=== PATIENT | female | born 1955 | race Caucasian/White ===

== ENCOUNTER 2020-12-03 16:09 | Outpatient (CLI) | payer OTHER, SELFPAY | END 2020-12-03 16:10 | disposition home or self-care (01) | LOC: ANHCOVIDVC 16:09 | DX: Z23 Encounter for immunization (principal) | CPT/HCPCS: 0001A; 91300 ==

== ENCOUNTER 2020-12-24 16:10 | Outpatient (CLI) | payer OTHER, SELFPAY | END 2020-12-24 16:11 | disposition home or self-care (01) | LOC: ANHCOVIDVC 16:10 | DX: Z23 Encounter for immunization (principal) | CPT/HCPCS: 0002A; 91300 ==

== ENCOUNTER → 2021-05-03 07:16 | Outpatient (CLI) | payer MEDICARE, SELFPAY ==
[2021-05-04 21:33] LABS: SARS-CoV-2 RNA PCR Positive
== END ==
PROVIDERS: PCP Family Medicine; Visit Provider Physician Assistant
DX: U07.1 COVID-19 (principal)
CPT/HCPCS: C9803; U0003; U0005

== ENCOUNTER 2022-04-16 16:28 | Outpatient (CLI) | payer MEDICARE, SELFPAY ==
--- NOTE | ~2022-04-16 | CT_ITS ---
EXAMINATION: CT diagnostic chest w con DATE: 04/16/2022 17:05 INDICATION: Carcinoid tumor, tumor site unspecified TECHNIQUE: Computed tomography (CT) of the chest was performed with 75 CC Omnipaque 300 intravenous c ontrast. Automated exposure control and iterative reconstruction technique were employed. Exam dose: 190.44 mGy-cm total exam DLP. COMPARISON: None FINDINGS: Nonspecific up to approximately 12 mm hypoenhancing right upper pole thyroid lesion. The th yroid gland is otherwise unremarkable. No hilar or mediastinal mass lesion or lymphadenopathy. No thoracic aortic aneurysm or dissection. Normal heart size. No pericardial or pleural effusion. 6.5 x 8 mm right lower lobe medial basilar pulmonary mass (series 4 image 69) 6 mm left lower lobe pulmonary mass (series 4 image 57). Clinical history indicates carcinoid tumor but bursitis unspecified. It is not known whether this is a primary gastrointestinal or buckle pulmonary carcinoid. The right adrenal gland appears normal. Approximately 8 x 12 mm left adrenal nodule. Multiple diverticula of the included splenic flexure of the colon. Degenerative changes of the cervical, thoracic and lumbar spine. No suspicious osteolytic or osteobla stic lesions are noted. IMPRESSION: 6.5 x 8 mm right lower lobe pulmonary nodule and 6 mm left lower lobe pulmonary nodule. Differential diagnosis includes primary or metastatic carcinoid tumor given the clinical history; janette bandar bronchogenic or metastatic lung cancer as well as granuloma and hamartoma are among the consider ations in the differential diagnosis. Clinical correlation and comparison to prior imaging studies wo uld be helpful. Reviewed, dictated and finalized at [facility]. Reviewed, dictated and finalized at location B. IMPRESSION: 6.5 x 8 mm right lower lobe pulmonary nodule and 6 mm left lower l obe pulmonary nodule. Differential diagnosis includes primary or metastatic car cinoid tumor given the clinical history; primary bronchogenic or metastatic ana paula g cancer as well as granuloma and hamartoma are among the considerations in the differential diagnosis. Clinical correlation and comparison to prior imaging s tudies would be helpful.
[2022-04-16 16:55] LABS: Estimated Glomerular Filt Rate > 60
== END 2022-04-16 16:29 | disposition home or self-care (01) ==
PROVIDERS: PCP Family Medicine; Visit Provider Physician Assistant
DX: D3A.00 Benign carcinoid tumor of unspecified site (principal); R91.1 Solitary pulmonary nodule
CPT/HCPCS: 71260; Q9967

== ENCOUNTER 2022-05-02 14:20 | Outpatient (CLI) | payer MEDICARE, SELFPAY ==
--- NOTE | ~2022-05-02 | MM_ITS ---
EXAMINATION: MM screening vanessa BI w jael HISTORY: Screening TECHNIQUE: Craniocaudal and mediolateral oblique 3-D tomosynthesis images were obtained and synthetic 2-D images were generated. CAD analysis was submitted and interpreted. COMPARISON: No prior mammogram is available for comparison at this institution. BREAST PARENCHYMAL COMPOSITION: There are scattered areas of fibroglandular density. FINDINGS: There is a benign-appearing mass in the upper outer quadrant of the right breast, consisten t with intramammary lymph node. There is no evidence of suspicious mass, calcification, or architectu ral distortion to suggest malignancy in either breast. There has been no suspicious interval change. IMPRESSION: 1. No mammographic evidence of malignancy. 2. Recommend routine screening mammography in one year. BI-RADS Category 1: Negative Reviewed, dictated and finalized at location A.
--- NOTE | ~2022-05-02 | DEXA_ITS ---
Bone Density Report Name: LIZETTE LEWIS Age: 66 Sex: Female Ethnicity: Pamella Date of : 1955 Indication: postmenopausal; screening for osteoporosis; parental hip fracture; height loss; Referring Provider: JESSIE EVANS Study: Bone densitometry was performed. Exam Date: May 02, 2022 Accession number: [id number] Bone Density: Region BMD T-score Z-score Classification AP Spine(L1-L4) 1.105 0.5 2.4 Normal Femoral Neck (Left) 0.637 -1.9 -0.4 Osteopenia Total Hip (Left) 0.774 -1.4 -0.1 Osteopenia Femoral Neck (Right) 0.645 -1.8 -0.3 Osteopenia Total Hip (Right) 0.808 -1.1 0.2 Osteopenia Total Hip Mean 0.791 -1.3 0.1 Osteopenia World Health Organization criteria for BMD impression classify patients as: Normal (T-score at or above -1.0), Osteopenia (T-score between -1.0 and -2.5), or Osteoporosis (T-score at or below -2.5). 10-year Fracture Risk(1): Major Osteoporotic Fracture 17% Hip Fracture 1.5% Reported Risk Factors: [place] (), Neck BMD=0.637, BMI=34.1, parental fracture (1) FRAX(R) Version 3.08. Fracture probability calculated for an untreated patient. Fracture probability may be lower if the patient has received treatment. Clinical Information Provided by Patient: Parent has had a hip fracture Has used the following medications: Actonel (i.e. risedronate) Patient maximum height was 60 Menopause Age: 46 No regular weight bearing exercise Onset of menses at age 13 Number of children 2 Impression: The patient has low bone mass, based on the Left Femoral Neck T-score. The patient has an estimated ten-year risk of hip fracture of 1.5% and an estimated ten-year risk of major fracture of 17%, based on the WHO FRAX algorithm. The patient has risk factors, including: parental hip fracture. Discussion: BONE DENSITY IS LOW AT ONE OR MORE SKELETAL SITES. This patient's lowest T-score is low at one or more skeletal sites. It meets the World Health Organization's (WHO) criteria for ?low bone mass? (T-score between -1.0 and -2.5). The patient's 10-year risk of fracture as calculated by FRAX is less than the threshold where pharmacological therapy is recommended by the National Osteoporosis Foundation (NOF). However, all treatment decisions require clinical judgment and consideration of individual patient factors, including patient preferences, comorbidities, previous drug use, risk factors not captured in the FRAX model (e.g., frailty, falls, vitamin D deficiency, increased bone turnover, interval significant decline in bone density) and possible under or overestimation of fracture risk by FRAX. The patient should follow a healthful lifestyle (good nutrition with adequate calcium and vitamin D, and appropriate weight-bearing exercise). Follow-Up: Consider repeating this st
== END 2022-05-02 14:21 | disposition home or self-care (01) ==
LOC: ANHIMG 14:24
PROVIDERS: PCP Family Medicine; Visit Provider Nurse Practitioner Gerontology
DX: Z12.31 Encounter for screening mammogram for malignant neoplasm of breast (principal); Z78.0 Asymptomatic menopausal state; M85.89 Other specified disorders of bone density and structure, multiple sites
CPT/HCPCS: 77063; 77067; 77080

== ENCOUNTER 2022-09-11 12:14 | Outpatient (CLI) | payer MEDICARE, SELFPAY ==
--- NOTE | ~2022-09-11 | XR_ITS ---
AP and bilateral oblique views of the pelvis CLINICAL HISTORY: Osteoarthritis FINDINGS: No fracture or dislocation seen. Bilateral hip joints are preserved. There is mild sclerosi s and questionable subtle erosions. No definite erosive change. Soft tissues are unremarkable. IMPRESSION: Findings suggestive of bilateral sacroiliitis. Correlate clinically. Consider MR to further evaluate/ confirmed. Reviewed, dictated and finalized at location [] ECTOR AND CLERK IMPRESSION: Findings suggestive of bilateral sacroiliitis. Correlate clinically. Consider M R to further evaluate/confirmed.
== END 2022-09-11 12:15 | disposition home or self-care (01) ==
LOC: ANHIMG 12:17
PROVIDERS: PCP Family Medicine; Visit Provider Family Medicine
DX: M16.10 Unilateral primary osteoarthritis, unspecified hip (principal); M53.3 Sacrococcygeal disorders, not elsewhere classified
CPT/HCPCS: 72190

== ENCOUNTER 2022-10-20 09:34 | Outpatient (CLI) | payer MEDICARE, SELFPAY ==
--- NOTE | ~2022-10-20 | CT_ITS ---
EXAMINATION:CT diagnostic chest wo con DATE: 10/20/2022 09:54 INDICATION: Pulmonary nodule. TECHNIQUE: Computed tomography (CT) of the chest was performed without intravenous contrast. Automate d exposure control and iterative reconstruction technique were employed. The dose-length product (DLP ) was 174.30 mGy-cm. COMPARISON: Chest CT 04/16/2022, 07/05/2015 FINDINGS: There are changes of right lung upper lobectomy. There is mild atelectasis bilaterally. The re is an 8 mm nodule in right lower lobe without change from 04/16/2022 that measured 6 mm on 5. There is a 7 mm in left lower lobe that measured 4 mm on 07/05/2015 and 7 mm on 04/16/2022. There is a 3 mm nodule in left lower lobe without change from 04/16/2022. No pleural effusion. There is a 1.7 cm nodule in right thyroid lobe, new from 07/05/2015. The heart size is normal. There are coronary art sb calcifications. No pericardial effusion. There is severe thoracic spondylosis. There are rib caraballo ges of right-sided thoracotomy. IMPRESSION: 1. Pulmonary nodules, stable from 04/16/2022 and worsened from , likely benign. Consider nonco ntrast low-dose chest CT in one year. Reviewed, dictated and finalized at location A. EU THERAPIST IMPRESSION: 1. Pulmonary nodules, stable from 04/16/2022 and worsened from , likely benign. Consider noncontrast low-dose chest CT in one year.
== END 2022-10-20 09:35 | disposition home or self-care (01) ==
PROVIDERS: PCP Family Medicine; Visit Provider Internal Medicine Pulmonary Disease
DX: Z85.9 Personal history of malignant neoplasm, unspecified (principal); R91.8 Other nonspecific abnormal finding of lung field
CPT/HCPCS: 71250

== ENCOUNTER 2024-03-22 16:24 | Outpatient (CLI) | payer MEDICARE, SELFPAY ==
--- NOTE | ~2024-03-22 | CT_ITS ---
CT Scan of the Chest without Contrast: Clinical Indication: Benign carcinoid tumor Technique: Contiguous sections were acquired throughout the chest without intravenous contrast. Dose reduction technique was used on this scan by utilizing automated exposure control and iterative recon struction technique. The dose-length product (DLP) was 193.27 mGy-cm. COMPARISON: 10/20/2022 Findings: There is no evidence of any significant mediastinal, hilar or axillary lymphadenopathy. The mediastin al soft tissues appear normal. There is no evidence of pleural or pericardial effusion. Stable 9 mm circumscribed nodule in the medial right lower lobe (axial image 68). Stable 6 mm left lo wer lobe pulmonary nodule (axial image 55). Images through the upper abdomen reveal no abnormalities. Impression: Stable 9 mm right lower lobe pulmonary nodule and stable 6 mm left lower lobe pulmonary nodule. Reviewed, dictated and finalized at [facility]. Impression: Stable 9 mm right lower lobe pulmonary nodule and stable 6 mm left lower lobe p ulmonary nodule.
== END 2024-03-22 16:25 | disposition home or self-care (01) ==
LOC: ANHIMG 16:24
PROVIDERS: PCP Family Medicine; Visit Provider Internal Medicine Pulmonary Disease
DX: D3A.00 Benign carcinoid tumor of unspecified site (principal); R91.8 Other nonspecific abnormal finding of lung field
CPT/HCPCS: 71250

== ENCOUNTER 2024-05-12 14:19 | Outpatient (CLI) | payer MEDICARE, SELFPAY ==
--- NOTE | ~2024-05-12 | MM_ITS ---
EXAMINATION: MM screening vanessa BI w jael HISTORY: Screening TECHNIQUE: Craniocaudal and mediolateral oblique 3-D tomosynthesis images were obtained and synthetic 2-D images were generated. CAD analysis was submitted and interpreted. COMPARISON: 05/02/2022 BREAST PARENCHYMAL COMPOSITION: Not dense: There are scattered areas of fibroglandular density. FINDINGS: There is no evidence of suspicious mass, calcification, or architectural distortion to sugg est malignancy in either breast. There has been no suspicious interval change. IMPRESSION: 1. No mammographic evidence of malignancy. 2. Recommend routine screening mammography in one year. BI-RADS Category 1: Negative Reviewed, dictated and finalized at location B.
== END 2024-05-12 14:20 | disposition home or self-care (01) ==
LOC: ANHIMG 14:20
PROVIDERS: PCP Family Medicine; Visit Provider Family Medicine
DX: Z12.31 Encounter for screening mammogram for malignant neoplasm of breast (principal)
CPT/HCPCS: 77063; 77067

== ENCOUNTER 2024-12-23 09:52 | Outpatient (CLI) | payer MEDICARE, SELFPAY ==
--- NOTE | ~2024-12-23 | CT_ITS ---
EXAMINATION:CT diagnostic chest w con DATE: 12/23/2024 10:27 INDICATION: Personal history of malignant neoplasm of lung. TECHNIQUE: Computed tomography (CT) of the chest was performed with 75 mL Omnipaque 350 intravenous c ontrast. Automated exposure control and iterative reconstruction technique were employed. The dose-le ngth product (DLP) was 249.50 mGy-cm. COMPARISON: Chest CT 03/22/2024, 04/16/22 FINDINGS: There are changes of right-sided lobectomy, likely a right upper lobectomy. The lungs demon strate mild atelectasis. There is an 8 mm nodule in right lower lobe. There is a 6 mm nodule in left lower lobe. There is mild bronchiectasis in left lower lobe. No pleural effusion. There is a 16 mm no dule in right thyroid lobe. The heart size is normal. No pericardial effusion. There is a small slidi ng hiatal hernia. There is mild chronic anterior wedging of multiple lower thoracic vertebral bodies. There is severe thoracic spondylosis. IMPRESSION: 1. Pulmonary nodules, stable from 04/16/2022, likely benign. 2. Right thyroid nodule. Consider thyroid ultrasound for risk stratification. Reviewed, dictated and finalized at location A.
[2024-12-23 10:18] LABS: Estimated Glomerular Filt Rate > 60
== END 2024-12-23 09:53 | disposition home or self-care (01) ==
PROVIDERS: PCP Family Medicine; Visit Provider Student in an Organized Health Care Education/Training Program
DX: Z85.9 Personal history of malignant neoplasm, unspecified (principal); Z86.005 Personal history of in-situ neoplasm of middle ear and respiratory system; Z85.110 Personal history of malignant carcinoid tumor of bronchus and lung; R91.8 Other nonspecific abnormal finding of lung field; E04.1 Nontoxic single thyroid nodule
CPT/HCPCS: 71260; Q9967

== ENCOUNTER 2025-01-26 14:44 | Outpatient (CLI) | payer MEDICARE, SELFPAY ==
--- NOTE | ~2025-01-26 | US_ITS ---
EXAMINATION: US thyroid DATE: 01/26/2025 15:23 INDICATION: Thyroid nodule TECHNIQUE: Multiple ultrasound images of the thyroid were obtained. COMPARISON: None. FINDINGS: The right thyroid lobe measures 4.5 x 2.4 x 2.0 cm. Within the right lobe of the thyroid gland is a 21 x 15 x 14 mm nodule: Composition - spongiform Echogenicity -hyperechoic and isoechoic (1) Shape - wider than tall Margin - smooth Echogenic foci - none. = TR 1, benign. The left thyroid lobe measures 4.0 x 1.4 x 0.9 cm. The isthmus measures 0.5cm in anterior to posterior dimension. There is otherwise normal echotexture throughout the remainder of the thyroid gland. No additional di screte nodules identified. Normal vascular flow is present. IMPRESSION: TR 1 (benign) nodule within the right lobe of the thyroid gland measuring 21 mm in greatest dimension . This nodule is not sonographically suspicious and no FNA is recommended Follow-up is not recommended, but may be performed. Reviewed, dictated and finalized at location A. IMPRESSION: TR 1 (benign) nodule within the right lobe of the thyroid gland measuring 21 mm in greatest dimension. This nodule is not sonographically suspicious and no FNA is recommended Follow-up is not recommended, but may be performed.
--- OUTSIDE RECORDS SUMMARY | 2025-01-26 15:25 | XMS_ITS | Clinical Summary ---
Author Organization [facility] Address [address] [place] [address] Care Team Providers Care Title Insurance Examiner Name Role Phone Shweta Foster MD Primary Care Provider Source Comments [facility],non-owned Affiliates and Associated Physician Practices is amultiple site organization consisting of ambulatory clinics and hospital sitesin [place], [place], [place] and [place]. This disclosure is being madepursuant to the Care Everywhere program and may not contain all information available regarding this patient. Last updated 18.[facility] Allergies Active Allergy Reactions Criticality Noted Date Comments Finacea Palpitations 06/30/2018 Latex Rash Medium 06/30/2018 Penicillins Unknown 06/30/2018 Sulfa Drugs Unknown 06/30/2018 Medications * Be aware that medications may not be up to date on this document. Alwaysverify current medications with the patient. hydroCHLOROthiazide (HYDRODIURIL) 25 MG tablet Take 1 tablet by mouth once daily 8 Active lisinopril (PRINIVIL; ZESTRIL) 20 MG tablet Take 1 tablet by mouth once daily 8 Active Vitamin D, Ergocalciferol, 2000 UNITS CAPS Take by mouth once daily Active calcium 600 MG tablet Take 1 tablet by mouth daily with food Active atorvastatin (LIPITOR) 40 MG tabletIndications:M ixed hyperlipidemia Take 1 tablet by mouth once daily 90 tablet 3 8 Active Active Problems No known active problems Family History Medical History Relation Name Comments Hypertension Father CVA Maternal Grandmother Dementia Mother High Cholesterol Mother Hypertension Mother Parkinson's Disease Mother CVA Paternal Grandmother Hypertension Sister 1 Other - Cardiac Sister 1 heart murmur Other - Cardiac Sister 2 Relation Name Status Comments Father Maternal Grandmother Mother Paternal Grandmother Sister 1 Alive Sister 2 Alive Sister 3 Alive Sister 4 Alive Social History Tobacco Use Types Packs/Day Years Used Date Smoking Tobacco: Former Cigarettes 0.5 5 1 995 - 2000 Smokeless Tobacco: Never Tobacco Cessation:Counseling Given: Yes Alcohol Use Standard Drinks/Week Comments No 0 (1 standard drink = 0.6 oz pur e alcohol) Comments Unknown Sex and Gender Information Value Date Recorded Sex Assigned at Not on file Legal Sex 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 Gender Identity Not on file Sexual Orientation Not on file Last Filed Vital Signs Vital Sign Reading Time Taken Comments Blood Pressure 130/79 06/30/2018 2:30 PM CDT Pulse 101 06/30/2018 2:30 PM CDT Temperature - - Respiratory Rate - - Oxygen Saturation - - Inhaled Oxygen Concentration - - Weight 80.4 kg (177 lb 3.2 oz) 06/30/2018 2:29 P M CDT Height 152.4 cm (5') 06/30/2018 2:29 PM CDT Body Mass Index 34.61 06/30/2018 2:29 PM CDT Plan of Treatment Health Maintenance Due Date Last Done Comments BONE DENSITY TESTING 1955 COLOGUARD (AGES 45-75) - COL ON CA SCREENING 1955 COLON MONITORING 1955 COLONOSCOPY - COLON CA SCREENING 1955 CT COLONOGRAPHY - COLON CA SCREENING 1955 Colorectal Cancer Screening 1955 FIT - COLON CA SCREENING 1955 FLEX SIG - COLON CA SCREENING 1955 MAMMOGRAM 1955 HEPATITIS C SCREENING 05/12/1974 DTAP/TDAP/TD VACCINES (1 - Tdap) 1975 PNEUMOCOCCAL VACCINE 50+ (1 of 1 - PCV) 2006 ZOSTER VACCINE (1 of 2) 2006 SCREENING FOR DIABETES 06/30/2018 COVID-19 VACCINE ( - 2023-2 5 season) 2024 DEPRESSION SCREENING 09/28/2024 INFLUENZA VACCINE (Season Ended) 2025 Respiratory Syncytial Virus (RSV) Vaccine Pt: or over 60 yrs (1 - 1-dose 75+ series) 2031 HEPATITIS B VACCINE Aged Out No longe r eligible based on patient's age to complete this topic HIB VACCINE Aged Out No longer eligi ble based on patient's age to complete this topic HPV VACCINE Aged Out No longer eligi ble based on patient's age to complete this topic MENINGOCOCCAL (Group B) VACC INE SHARED DECISION-MAKING Aged Out No longer eligibl e based on patient's age to complete this topic MENINGOCOCCAL GROUPS A/C/Y/W VACCINE Aged Out No longer eligible b ased on patient's age to complete this topic Insurance ANTH Care Teams Title Insurance Examiner Relationship Specialty Start Date End Date Shweta Foster MD PCP - General Family Medicine 09/10/15
--- OUTSIDE RECORDS SUMMARY | 2025-01-26 15:25 | XMS_ITS | Clinical Summary ---
Author Organization [facility] Address [facility] [place] [address] Care Team Providers Care Supervisor Real Estate Office Name Role Phone Veto Soriano MD Primary Care Provider Unavailabl e Allergies Active Allergy Reactions Criticality Noted Date Comments Penicillins Unknown 06/30/2018 Sulfa Antibiotics Unknown 06/30/2018 Medications Vitamin D, Ergocalciferol, 50 MCG (1999 UT) Cap Take by mouth daily. Active calcium, elemental, 600 MG tablet Take 1 tablet by mouth. Active hydroCHLOROthiazi de 25 MG tabletIndications :Essential hypertension Take 1 tablet (25 mg total) by mouth daily. 90 tablet 1 11/02/2020 Active lisinopril 20 MG tabletIndications :Essential hypertension Take 1 tablet (20 mg total) by mouth daily. 90 tablet 1 11/02/2020 Active Active Problems Problem Noted Date Diagnosed Date Essential hypertension 11/02/2020 Hyperlipidemia, unspecified hyperlipidemia type 11/02/2020 Immunizations Immunization Administration Dates Next Due Fluzone 6 Months+ Quad (0.5 mL Prefilled Syringe ) 06/11/2020 Shingrix 10/11/2019 Family History Medical History Relation Comments Alzheimers Mother Hypertension Mother Relation Status Comments Mother Social History Tobacco Use Types Packs/Day Years Used Date Smoking Tobacco: Never Smokeless Tobacco: Never Tobacco Cessation:Counseling Given: No Alcohol Use Standard Drinks/Week Comments Not Currently 0 (1 standard drink = 0.6 oz pur e alcohol) PHQ-2 Answer Date Recorded PHQ-2 Score - If the patient scores above 3, please move on to questions 3-9 0 11/02/2020 Comments No Sex and Gender Information Value Date Recorded Sex Assigned at Not on file Legal Sex 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 Gender Identity Not on file Sexual Orientation Not on file Last Filed Vital Signs Vital Sign Reading Time Taken Comments Blood Pressure 124/86 11/02/2020 9:58 AM PRINTER MAINTAINER Pulse 74 11/02/2020 9:58 AM PRINTER MAINTAINER Temperature 36.6 C (97.9 F) 11/02/2020 9:58 AM PRINTER MAINTAINER Respiratory Rate 18 11/02/2020 9:58 AM PRINTER MAINTAINER Oxygen Saturation 98% 11/02/2020 9:58 AM PRINTER MAINTAINER Inhaled Oxygen Concentration - - Weight 76.7 kg (169 lb) 11/02/2020 9:58 AM PRINTER MAINTAINER Height 152.4 cm (5') 11/02/2020 9:58 AM PRINTER MAINTAINER Body Mass Index 33.01 11/02/2020 9:58 AM PRINTER MAINTAINER Plan of Treatment Health Maintenance Due Date Last Done Comments Hepatitis C 1974 DTaP, Tdap and Td Vaccines (1 - Tdap) 1975 Pneumococcal Vaccine: 50+ Years (1 of 1 - PCV) 2006 Mammogram Screening 09/24/2019 09/24/2017, 07/16/2015, 06/06/2011 Zoster Vaccines (2 of 2) 12/06/2019 10/11/2019 Dexa Scan (General) 2021 12/26/2015, 12/26/2015, 06/06/2011, Additional history exists COVID-19 Vaccine (1 - 2023- season) 2024 Colorectal Cancer Screening Colonoscopy (10 Years) 11/25/2026 11/25/2016, 05/20/2006 RSV Immunization or 60+ Years (1 - 1-dose 75+ series) 2031 Meningococcal B Vaccine Aged Out No l onger eligible based on patient's age to complete this topic Meningococcal Vaccine Aged Out No faizan kerry eligible based on patient's age to complete this topic RSV Immunizations Under 20 Months Aged Out No longer eligible based on patient's age to complete this topic Procedures Procedure Name Priority Date/Time Associated Diagnosis Comments MAMMOGRAM GENERIC (SCAN ORDER) 09/24/2017 COLONOSCOPY GENERIC (SCAN ORDER) 11/25/2016 BONE DENSITY GENERIC (SCAN ORDER) 12/26/2015 from Last 3 Months or Most Recently Relevant to Health Maintenance Results * MAMMOGRAM GENERIC (09/24/2017) Anatomical Region Laterality Modality Other 09/24/2017 Narrative 09/24/2017 Ordered by an unspecified provider. us Documents Scanned SCANNING Edited Result - Final * COLONOSCOPY GENERIC (11/25/2016) 11/25/2016 Narrative 11/25/2016 Ordered by an unspecified provider. us Documents Scanned SCANNING Edited Result - Final * BONE DENSITY GENERIC (12/26/2015) Anatomical Region Laterality Modality Other 12/26/2015 Narrative 12/26/2015 Ordered by an unspecified provider. us Documents Scanned SCANNING Edited Result - Final from Last 3 Months or Most Recently Relevant to Health Maintenance Insurance MEDICA Care Teams Supervisor Real Estate Office Relationship Specialty Start Date End Date Veto Soriano MD PCP - General FAMILY MEDICINE SPORTS MEDICINE 10/29/20
== END 2025-01-26 14:45 | disposition home or self-care (01) ==
PROVIDERS: PCP Family Medicine; Visit Provider Family Medicine
DX: E04.1 Nontoxic single thyroid nodule (principal)
CPT/HCPCS: 76536